=== PATIENT | female | born 1960 | race Caucasian/White ===

== ENCOUNTER 2023-03-12 08:42 | Outpatient (CLI) | payer MEDICARE, MEDICAID | END 2023-03-12 08:43 | disposition home or self-care (01) | LOC: CSHCP 08:42 | PROVIDERS: ATTEND Internal Medicine | DX: J44.9 Chronic obstructive pulmonary disease, unspecified (principal); F17.218 Nicotine dependence, cigarettes, with other nicotine-induced disorders; R94.2 Abnormal results of pulmonary function studies; R91.1 Solitary pulmonary nodule; I70.8 Atherosclerosis of other arteries | CPT/HCPCS: 71271; 94060; 94618; 94664; 94726; 94729 ==